=== PATIENT | female | born 1970 | race Native Hawaiian/Other Pacific Islander ===

== ENCOUNTER 2019-04-29 11:42 | Emergency (ER) | payer OTHER ==
[~2019-04-29] VITALS: Ht 165.1 cm; Wt 56.7 kg
--- NOTE | 2019-04-29 12:10 | NUR ---
PT BROUGHT IN BY [facility] HOME ABLE TO AMBULATE FROM CAR TO ER PT REQUESTED WHEELCHAIR UPON ARRIVAL. PT ABLE TO AMBULATE AND TRANSFER FR WHEELCHAIR TO [facility] MAINLY SPEAKS LATVIAN, ABLE TO TRANSLATE BASIC COMMANDS PER : PT C/O BACK AND L SHOULDER PAIN, +AIR VICE MARSHAL WEAKNESS PT FELL TWICE: FIRST ON 04/21/2019 WHILE CLEANING FLOOR COMPLAINED OF BACK PAIN SECOND FALL WAS 04/23/2019 ON BED AND STARTED C/O L SHOULDER PAIN, PAIN UPON ROM AND WEAKNESS OF AIR VICE MARSHAL +PERIPHERAL PULSES, CAP REFILL AT LESS THAN 3S CLEAR AIRWAY
[2019-04-29 12:29] LABS: CREATININE 0.7 mg/dL (0.6-1.3); POTASSIUM 3.7 mmol/L (3.5-5.1)
--- NOTE | 2019-04-29 12:29 | NUR ---
BROUGHT TO CT VIA JOSETTE MICHAELS BY MOTORMAN/WOMAN
[2019-04-29 12:34] LABS: BASOPHILS % (AUTO) 0.8 % (0.0-2.0); EOSINOPHILS # (AUTO) 0.1 K/uL (0.0-0.7); EOSINOPHILS % (AUTO) 1.3 % (0.0-7.0); HEMATOCRIT 43.8 % (31.2-41.9); HEMOGLOBIN 14.3 g/dL (10.9-14.3); LYMPHOCYTES # (AUTO) 1.3 K/uL (20.0-40.0); MEAN CORPUSCULAR HEMOGLOBIN 31.3 uug (24.7-32.8); MEAN CORPUSCULAR HGB CONC 33 g/dL (32.3-35.6); MEAN CORPUSCULAR VOLUME 96.1 fL (75.5-95.3); MONOCYTES # (AUTO) 0.4 K/uL (2.0-10.0); MONOCYTES % (AUTO) 7.4 % (0.0-11.0); NEUTROPHILS # (AUTO) 3.4 K/uL (1.8-8.9); NEUTROPHILS % (AUTO) 65.5 % (38.5-71.5); PLATELET COUNT (AUTO) 176 K/uL (179-408); RED BLOOD CELL COUNT(AUTO) 4.56 MIL/uL (3.63-4.92); WHITE BLOOD COUNT (AUTO) 5.2 K/uL (3.8-11.8)
--- NOTE | 2019-04-29 12:59 | NUR ---
LOTTERY CLERK (MINI) AT BEDSIDE WITH AND ERMD
[2019-04-29] MEDS ORDERED: HYDROCODONE/APAP 5-325MG TABLET ONE (13:13)
[2019-04-29] MEDS ORDERED: HYDROCODONE/APAP 5-325MG TABLET PO ONE (13:15)
--- NOTE | 2019-04-29 13:20 | NUR ---
POULTRY BONER AT BEDSIDE
--- NOTE | 2019-04-29 13:30 | NUR ---
PT ABLE TO TOLERATE PO MEDS ORDERED
--- NOTE | 2019-04-29 13:40 | NUR ---
Patient discharged to home in stable conditon. Written and verbal after care instructions given. Patient verbalizes understanding of instructions. AMBULATORY W/ STABLE GAIT ALL BELONGINGS W/ PT PT AMBULATORY W/ ANTALGIC GAIT WILL DRIVE HER HOME
[2019-04-29 13:45] VITALS: BP 111/76
== END 2019-04-29 13:45 | disposition home or self-care (01) ==
LOC: ER 11:42
DX: S40.012A Contusion of left shoulder, initial encounter (principal); S09.90XA Unspecified injury of head, initial encounter; M54.2 Cervicalgia; M54.5 Low back pain; R10.2 Pelvic and perineal pain; W18.39XA Other fall on same level, initial encounter; Y93.89 Activity, other specified; Y92.89 Other specified places as the place of occurrence of the external cause; Y99.8 Other external cause status
CPT/HCPCS: 36415; 70450; 72100; 72125; 72170; 73030; 85025; A4663

== ENCOUNTER 2019-05-20 09:54 | Emergency (ER) | payer OTHER ==
[~2019-05-20] VITALS: Ht 165.1 cm; Wt 56.7 kg
--- NOTE | 2019-05-20 10:08 | NUR ---
@bedside, MSE in progress
--- NOTE | 2019-05-20 10:20 | NUR ---
Patient's speaks Ukrainian & acted as store director for the patient. Patient discharged to home in stable condition & brisk steady gait. Written and verbal after care instructions given to patient and spouse . Patient and spouse verbalized understanding & compliance of instructions. Emphasis was given to patient & spouse re: how to have the disability forms filled up by the patient's workman compensation clinic staff MD/DIRECTOR CORPORATE.
== END 2019-05-20 10:21 | disposition home or self-care (01) ==
LOC: ER 09:54
DX: M25.532 Pain in left wrist (principal); F32.9 Major depressive disorder, single episode, unspecified
CPT/HCPCS: A4663